=== PATIENT | female | born 1975 | race Two or more races ===

== ENCOUNTER → 2024-07-30 | Outpatient (CLI) | payer MEDICAID, SELFPAY ==
--- NOTE | 2024-07-30 16:00 | XR_ITS ---
Examination: Breast ultrasound, unilateral, right complete Date and time of exam: July 30, 2024 1615 hours INDICATIONS: Right breast sonogram December 23, 2023 9:00 oval mass 5 x 6 mm Technique: Real-time siegel scale ultrasonographic imaging performed right breast including all 4 quadrants as well as nipple retroareolar and axillary region. Findings: 9:00 cyst, 3 x 2 x 2 mm 2.4 cm benign axillary lymph node IMPRESSION: BI-RADS Category 2: Benign findings
== END | disposition home or self-care (01) ==
LOC: CDIM 15:54
PROVIDERS: Referring Provider Physician Assistant; Visit Provider Physician Assistant
DX: N60.01 Solitary cyst of right breast (principal)
CPT/HCPCS: 76641

== ENCOUNTER 2024-10-21 20:31 | Emergency (ER) | payer MEDICAID, SELFPAY ==
[2024-10-21 20:40] VITALS: BP 150/84; PULSE 112; RESP 18; TEMP 36.7; O2SAT 98
[2024-10-21 21:53] VITALS: BMI 35.9
--- NOTE | 2024-10-21 21:57 | EKG_ITS ---
[facility] Test Date: 2024-10-21 Pat Name: JOSE VELIZ Department: Room: - Gender: Female Vessel Operator: : 1975 Requested By: Venancio Best Order Number: [id number] Reading MD: Venancio Best Measurements Intervals [place] Rate: 96 P: 46 OR: 141 QRS: 17 QRSD: 87 T: 13 QT: 342 QTc: 434 Interpretive Statements SINUS RHYTHM MINIMAL VOLTAGE CRITERIA FOR LVH, CONSIDER NORMAL VARIANT [MEETS CRITERIA IN ONE OF: R(aVL), S(V1), R(V5), R(V5/V6)+S(V1)] Compared to ECG 08/14/2023 12:04:38 No significant changes /store/S0/[id number]/[id number].pdf
--- NOTE | 2024-10-21 22:21 | EDRME_ITS ---
Rapid Medical Screening Exam [facility] Arrival date/time: 10/21/24 20:31 49F with history of hysterectomy presents to ED with 2 week of worsening bilateral lower leg swelling/pain (L>R), as well as some SOB. Possible cough. Chief Complaint: Extremity Injury, Lower Vital signs: Vital Signs Temperature 98.1 F 10/21/24 20:40 Pulse Rate 112 H 10/21/24 20:40 Respiratory Rate 18 10/21/24 20:40 Blood Pressure 150/84 H 10/21/24 20:40 Pulse Oximetry (%) 98 10/21/24 20:40 Oxygen Delivery Method Room Air 10/21/24 20:40
--- NOTE | 2024-10-21 22:21 | XR_ITS ---
Examination: Venous duplex lower extremity sonogram, bilateral. Date and time of exam: October 21, 2024 at 1118 hrs. Indications: Bilateral ankle swelling and pain beginning 2 weeks ago Technique: Multiple sonographic images of the deep venous system have been obtained. B-mode/2-D grayscale imaging of vascular structures and Doppler spectral analysis (waveforms) and color performed Both legs are examined. Findings: Deep venous systems do not demonstrate abnormal echogenicity. All visualized deep veins exhibit compressibility. All visualized deep veins exhibit augmentation. Impression: Negative for deep vein thrombosis
--- NOTE | 2024-10-21 22:21 | XR_ITS ---
Examination: PA chest single view Technique: Upright PA chest single view Exam date and time: October 21, 2024 1045 hrs. Comparison summary T2 thousand 16 Indications: Onset shortness of breath today. Findings: Normal heart size No pneumonia or pulmonary edema The osseous structures are intact Impression: No active disease
[2024-10-21 22:46] LABS: Basophils % (Auto) 0 % (0-2.5); Eosinophils # (Auto) 0.1 Thou/mm3 (0.0-0.5); Eosinophils % (Auto) 2 % (0-10); Hematocrit 30.3 % (36.0-46.0); Hemoglobin 10.1 g/dL (12.0-16.0); Immature Granulocytes % (Auto) 0 % (0-0); Lymphocytes # (Auto) 1.9 Thou/mm3 (1.0-4.8); Lymphocytes % (Auto) 50 % (10-50); Mean Corpuscular HGB Conc 33.3 g/dl (31.0-37.0); Mean Corpuscular Hemoglobin 29.4 pg (25.0-35.0); Mean Corpuscular Volume 88 fL (80-100); Monocytes # (Auto) 0.6 Thou/mm3 (0.0-0.8); Monocytes % (Auto) 16 % (0-12); Neutrophils # (Auto) 1.2 Thou/mm3 (1.8-7.7); Neutrophils % (Auto) 32 % (37-80); Nucleated Red Blood Cell % 0 /100 WBC (0); Platelet Count 184 Thou/mm3 (140-440); RDW Standard Deviation 39.6 fL (36.4-46.3); Red Blood Count 3.43 Miln/mm3 (4.00-5.20); White Blood Count 3.8 Thou/mm3 (3.6-11.0)
[2024-10-21 23:29] LABS: B-Type Natriuretic Peptide 78 pg/mL (0-100)
[2024-10-21 23:31] LABS: Alanine Aminotransferase 62 U/L (10-49); Albumin, Serum 3.9 gm/dL (3.5-5.0); Albumin/Globulin Ratio 1.6 (1.2-2.2); Alkaline Phosphatase 59 U/L (46-116); Anion Gap 8 (7-16); Aspartate Amino Transferase 30 U/L (0-34); BUN/Creatinine Ratio 38 Ratio (12-20); Bilirubin,Total 0.7 mg/dL (0.3-1.2); Blood Urea Nitrogen 19 mg/dL (9-23); Calcium (Corrected) 10.1 mg/dL (8.5-10.1); Carbon Dioxide 24.6 mMol/L (20.0-31.0); Chloride 110 mMol/L (98-107); Creatinine (Component) 0.5 mg/dL (0.6-1.3); Globulin 2.5 gm/dL (2.3-3.5); Glucose 94 mg/dL (74-106); Osmolality,Calculated 287 (275-295); Sodium 143 mMol/L (136-145); Total Protein 6.4 gm/dL (5.7-8.2); Troponin I < 0.002 ng/mL (0.0-0.045); eGFR > 60 See Note
[2024-10-21 23:33] LABS: Collection Type, Urine Clean Catch
[2024-10-21 23:40] LABS: Bilirubin,Urine Negative (Negative); Blood,Urine Negative (Negative); Clarity,Urine Turbid (Clear/Hazy); Color,Urine Yellow (Lt Yel-Yel); Glucose, Urine Negative (Negative); Hyaline Casts,Urine < 1 /hpf (0-1); Ketones,Urine Negative (Negative); Leukocyte Esterase,Urine Positive (Negative); Nitrite,Urine Positive (Negative); PH,Urine 5.5 (5.0-7.0); Protein,Urine Trace (Neg - Trace); RBC,Urine 5 /hpf (0-3); Specific Gravity,Urine 1.028 (1.001-1.035); Squamous Epithelial Cell,Urine 3 /hpf (0-5); WBC,Urine 14 /hpf (0-5)
== END 2024-10-22 03:11 | disposition left against medical advice (07) ==
LOC: SERX 22:28
PROVIDERS: Physician Assistant; Emergency Provider Emergency Medicine; PCP Physician Assistant
DX: M79.89 Other specified soft tissue disorders (principal); Z53.29 Procedure and treatment not carried out because of patient's decision for other reasons; R06.02 Shortness of breath
CPT/HCPCS: 36415; 71045; 80053; 81001; 83880; 84484; 85025; 93005; 93970; 99284

== ENCOUNTER → 2024-11-10 | Outpatient (CLI) | payer MEDICAID, SELFPAY ==
--- NOTE | 2024-11-10 14:25 | XR_ITS ---
Examination: Thyroid sonography complete TECHNIQUE: Grayscale sonographic images thyroid lobes, color flow analysis Exam date and time: November 10, 2024 1453 hours INDICATIONS: Abnormal thyroid laboratory values on examination November 08, 2024 FINDINGS: Right thyroid 4.4 x 1.7 x 1.7 cm Left thyroid 3.8 x 1.6 x 1.4 cm No solid nodules Thyroid lobes are hypervascular lobar pneumonia IMPRESSION: Hypervascular thyroid lobes, consider thyroiditis Consider correlation with nuclear medicine thyroid scan and uptake post oral administration of I-123
== END | disposition home or self-care (01) ==
DX: E07.89 Other specified disorders of thyroid (principal)
CPT/HCPCS: 76536

== ENCOUNTER 2024-11-24 11:45 | Outpatient (RCR) | payer MEDICAID, SELFPAY ==
--- NOTE | 2024-11-23 08:30 | XR_ITS ---
Examination: Nuclear medicine thyroid uptake and scan Exam date and time: November 23, 2024 0717 hours INDICATIONS: Low thyroid levels on laboratory examination this month, history hypervascular thyroid lobes on ultrasound thyroid November 10, 2024, cardiac palpitations difficulty swallowing throat pain months TECHNIQUE AND FINDINGS: Oral administration 274 uCi I-123 6 hour 24-hour thyroid uptake values as well as anterior oblique thyroid scans 6 hour uptake 50.7% normal range 6-24% 24 hour uptake 45.2% normal range 10-36% No thyroid nodules on the thyroid scans IMPRESSION: Elevated thyroid uptake values This patient is amenable to oral I-131 radiopharmaceutical therapy in the radiology department as clinically warranted
== END 2024-11-29 23:59 | disposition home or self-care (01) ==
LOC: SNUC 11:45
DX: R94.6 Abnormal results of thyroid function studies (principal)
CPT/HCPCS: 78013; A9516

== ENCOUNTER → 2024-11-25 | Outpatient (CLI) | payer MEDICAID, SELFPAY ==
--- NOTE | 2024-11-25 15:00 | XR_ITS ---
Examination: Abdomen sonogram, complete Date and time of exam: November 25, 2024 1448 hours INDICATIONS: Left lower abdominal pain beginning 2 weeks ago. Technique: Multiple real-time grayscale transabdominal sonographic images of the abdomen have been obtained. Findings: Normal gallbladder. Normal common bile duct 0.4 cm Pancreatic head 1.9 cm Aorta not enlarged. Liver 11.3 cm no focal liver lesions Normal hepatopedal portal venous Patent IVC Right kidney 10.9 cm renal cortex 1.2 cm 16mm renal cyst Left kidney 11.2 cm renal cortex 1.8 cm No hydronephrosis Mild bilateral renal parenchyma scar formation Spleen 10.0 cm IMPRESSION: Normal gallbladder Mild bilateral renal parenchymal scar formation No hydronephrosis
== END | disposition home or self-care (01) ==
LOC: CDIM 14:18
DX: N28.89 Other specified disorders of kidney and ureter (principal)
CPT/HCPCS: 76700

== ENCOUNTER → 2024-12-30 | Outpatient (CLI) | payer MEDICAID, SELFPAY ==
--- NOTE | 2024-12-30 10:06 | XR_ITS ---
Examination: CT abdomen and pelvis without contrast. Coronal 3-D reconstructions. Sagittal 2-D reconstructions. Date and time of exam:December 30, 2024 1011 hours COMPARISON: June 01, 2022 INDICATIONS: Generalized abdominal pain beginning 3 weeks ago CTDI: vol (mGy): 7.66 DLP: (mGycm): 392 Technique: Axial images of the abdomen have been obtained, 3 mm slice thickness Intravenous contrast material has not been administered. Low dose protocols were performed. One or more of the following dose reduction techniques were used; automated exposure control, adjustment of the mA and/or KV according to patient size, use of iterative reconstruction technique. Findings: No focal liver or splenic lesions Suspicious for gallstones No pancreatic or adrenal mass Subtle 1 mm bilateral renal calculi, no hydronephrosis or ureteral calculi Appendix is fluid-filled and thickened up to 8 mm with minimal periappendiceal inflammatory change No bowel obstruction No bladder mass IMPRESSION: Tiny bilateral nonobstructing renal calculi Recommend repeating this study with intravenous contrast to exclude early acute appendicitis
== END | disposition home or self-care (01) ==
LOC: CCTX 09:46
DX: N20.0 Calculus of kidney (principal); M62.81 Muscle weakness (generalized); R10.9 Unspecified abdominal pain; R11.0 Nausea
CPT/HCPCS: 74176

== ENCOUNTER 2025-02-26 21:35 | Observation (INO) | payer MEDICAID, SELFPAY ==
[2025-02-26 21:37] VITALS: BMI 28.6
[2025-02-26 21:48] VITALS: BP 145/86; PULSE 100; RESP 20; TEMP 37.4; O2SAT 98
--- NOTE | 2025-02-26 21:56 | PD.EDADULT ---
ED General RME/HPI General Chief complaint: Abdominal Pain Stated complaint: NVD ABD PAIN Time Seen by Provider: 02/26/25 21:41 Arrival date/time: 02/26/25 21:35 Related Data Home Medications ?Medication ?Instructions ?Recorded ?Confirmed ibuprofen 800 mg tablet 800 mg PO [id number] PRN Pain 08/14/23 08/14/23 Allergies Allergy/AdvReac Type Severity Reaction Status Date / Time carisoprodol Allergy Unknown HIVES. Verified 02/26/25 21:42 Review of Systems Review of Systems Systems Reviewed: All systems reviewed, normal except as documented ED Exam Narrative Physical exam: Physical Exam GENERAL: NAD, AAOx3 HEENT: Moist mucosa. Eyes open, symmetrical, & clear CARDIO: Heart RRR, no obvious murmurs PULM: No noted coughing/dyspnea CTA B/L, no R/W/R GI: Abdomen soft, nondistended, RLQ pain on palpation. BS-appreciated SKIN/MSK/EXT: No wounds/rashes/edema/amputations, no pain on palpation. Pedal pulses present B/L NEURO: AAOx3, no focal neuro deficits, able to move all 4 extremities Course Course Course Narrative: See MDM Quality Measures none Orders Category Date Time Status CT Screening NOW Care 02/26/25 22:25 Active Consult to General Surgery Stat Cons 02/27/25 04:[address] abdomen pelvis wo con Stat Exams 02/27/25 01:36 Taken US gall bladder Stat Exams 02/27/25 01:18 Taken Amylase Stat Lab 02/27/25 00:00 Completed CBC [CBC] Stat Lab 02/26/25 22:28 Completed CMP [Comprehensive Metabolic Panel] Stat Lab 02/26/25 22:28 Completed HCG Qualitative,Urine Stat Lab 02/26/25 23:15 Completed Lactic Acid [Lactate (Lactic Acid)] Stat Lab 02/26/25 22:28 Completed Lipase Stat Lab 02/27/25 00:00 Completed Magnesium Stat Lab 02/27/25 00:00 Completed UA [Urinalysis] Stat Lab 02/26/25 23:15 Completed ACETAMINOPHEN w/COD 300-30 [Tylenol w/Cod #3] Med 02/27/25 01:18 Discontinued 2 tab PO X1 ONE Ondansetron Inj [Zofran Inj] Med 02/26/25 21:59 Discontinued 4 mg IVP Q6HR PRN Ondansetron Odt [Zofran Odt] Med 02/27/25 01:18 Discontinued 4 mg PO X1 ONE Piper/Tazo 3.375 gm Premix [Zosyn] Med 02/27/25 03:22 Discontinued 3.375 gm in 50 ml IV X1 Ringers Lactated 1000 ml [Lactated Ringers] 1,000 ml Med 02/27/25 03:22 Active IV 125 mls/hr Ringers Lactated 1000 ml [Lactated Ringers] 1,000 ml Med 02/26/25 21:59 Discontinued IV 999 mls/hr Vital Signs Vital signs: Vital Signs Temperature 99.3 F 02/26/25 21:48 Pulse Rate 100 02/26/25 21:48 Respiratory Rate 20 02/26/25 21:48 Blood Pressure 145/86 H 02/26/25 21:48 Pulse Oximetry (%) 98 02/26/25 21:48 Oxygen Delivery Method Room Air 02/26/25 21:48 Discharge Plan Plan Patient Disposition: Admit Acute Care w/in Hospital Prescriptions/Referrals Prescriptions/Med Rec: No Action ibuprofen 800 mg tablet 800 mg PO [id number] PRN (Reason: Pain) Patient Comments: 1 TABLETA GERMAIN VECES AL D A CON ALIMENTO CUANDO SEA NECESARIO PARA EL DOLOR Referrals: No Primary/Family,Physician [Primary Care Provider] - In 1 week Problem List Clinical Impression: Acute appendicitis Patient/Caregiver Discharge Instructions Print Language: Azeri Stand Alone Forms: Mary Beth Award Info., Patient Portal Info Letter MDM Narrative MDM hospital course: 50 y/o F who presented to the ED due to abdominal pain. She described the pain more pronouned the RLQ but now has spread across her abdomen. She endorses chills as well which is new since a week ago. She also endorses 5x episodes of nausea and vomiting, however non-bloody and 5x episodes of nonbloody diarrhea. Patient states she had similar pain about a week ago went to [facility] and was told that she had fluid around her appendix and was told to come to the ED if symptoms happen again as she could be having appendicitis. 0330 CT reviewed and found to have appendicitis, spoke to Dr. Burgos who will admit the patient to OR for possible appendectomy in the a.m. recommended IV fluids and Zosyn Dr. Burgos will admit the patient to his service Clinical Information Provided by patient Medical Records Reviewed [facility] Chronic Illness/Social Conditions which may negatively complicate care or outcome(s)-explain: None or not applicable Lab Interpretation Labs: interpreted by me Lab(s) interpretation(s): normocytic anemia, CMP unremarkable, lipase slightly elevated, urine shows positive UTI, Imaging Radiology reports / interpretation(s): See radiology report Medication Administration(s) Medication Administration History Lactated Ringer's (Lactated Ringers) 1,000 mls @ 125 mls/hr IV .Q8H STEWART Stop: 03/29/25 03:21 Last Admin: 02/27/25 04:21 Dose: 125 mls/hr Documented By: BD Discontinued Medications Acetaminophen/Codeine Phosphate (Acetaminophen W/Cod 300-30 Tablet) 2 tab PO X1 ONE Stop: 02/27/25 01:19 Last Admin: 02/27/25 01:51 Dose: 2 tab Documented By: CHARLIE Lactated Ringer's (Lactated Ringers) 1,000 mls @ 999 mls/hr IV .Q1H1M ONE Stop: 02/26/25 22:59 Last Admin: 02/27/25 01:22 Dose: Not Given Documented By: CRISTIN Non-Admin Reason: Cancelled by Provider Piperacillin/Tazobactam/Dextrose (Zosyn) 3.375 gm in 50 mls @ 100 mls/hr IV X1 ONE Stop: 02/27/25 03:51 Last Admin: 02/27/25 04:21 Dose: 100 mls/hr Documented By: ARELY Ondansetron HCl (Ondansetron Inj 2 Mg/Ml Inj 2 Ml) 4 mg IVP Q6HR PRN; Protocol PRN Reason: NAUSEA OR VOMITING Stop: 03/28/25 21:58 Ondansetron HCl (Ondansetron Odt 4 Mg Tabrap) 4 mg PO X1 ONE; Protocol Stop: 02/27/25 01:19 Last Admin: 02/27/25 01:50 Dose: 4 mg Documented By: CHARLIE Diagnosis Differential diagnosis: Acute appendicitis, colitis, diverticulitis Most likely dx, and/or detailed dx discussion: Acute appendicitis Dispositon Disposition: Admit
[2025-02-26 22:47] LABS: Basophils # (Auto) 0.0 Thou/mm3 (0.0-0.2); Basophils % (Auto) 0 % (0-2.5); Eosinophils # (Auto) 0.0 Thou/mm3 (0.0-0.5); Eosinophils % (Auto) 0 % (0-10); Hematocrit 35.4 % (36.0-46.0); Hemoglobin 11.7 g/dL (12.0-16.0); Immature Granulocytes Auto 0.03 Thou/mm3 (0.00-0.00); Lymphocytes # (Auto) 0.9 Thou/mm3 (1.0-4.8); Lymphocytes % (Auto) 9 % (10-50); Mean Corpuscular HGB Conc 33.1 g/dl (31.0-37.0); Mean Corpuscular Hemoglobin 28.9 pg (25.0-35.0); Mean Corpuscular Volume 87 fL (80-100); Monocytes # (Auto) 0.6 Thou/mm3 (0.0-0.8); Monocytes % (Auto) 6 % (0-12); Neutrophils # (Auto) 8.4 Thou/mm3 (1.8-7.7); Neutrophils % (Auto) 84 % (37-80); Nucleated Red Blood Cell # 0.00 Thou/mm3 (0.00-0.00); Nucleated Red Blood Cell % 0 /100 WBC (0); Platelet Count 206 Thou/mm3 (140-440); RDW Standard Deviation 46.5 fL (36.4-46.3); Red Blood Count 4.05 Miln/mm3 (4.00-5.20); White Blood Count 9.9 Thou/mm3 (3.6-11.0)
[2025-02-26 22:48] LABS: Lactate (Lactic Acid) 1.5 mMol/L (0.4-2.0)
[2025-02-26 23:12] LABS: Alanine Aminotransferase 28 U/L (10-49); Albumin, Serum 4.5 gm/dL (3.5-5.0); Albumin/Globulin Ratio 1.5 (1.2-2.2); Alkaline Phosphatase 154 U/L (46-116); Anion Gap 8 (7-16); Aspartate Amino Transferase 20 U/L (0-34); BUN/Creatinine Ratio 20 Ratio (12-20); Bilirubin,Total 0.5 mg/dL (0.3-1.2); Blood Urea Nitrogen 12 mg/dL (9-23); Calcium 10.1 mg/dL (8.3-10.6); Calcium (Corrected) 10.1 mg/dL (8.5-10.1); Carbon Dioxide 23.7 mMol/L (20.0-31.0); Chloride 110 mMol/L (98-107); Creatinine (Component) 0.6 mg/dL (0.6-1.3); Estimated Creatinine Clearance 89.5 mL/min (>60); Globulin 3.1 gm/dL (2.3-3.5); Glucose 123 mg/dL (74-106); Osmolality,Calculated 283 (275-295); Potassium 4.9 mMol/L (3.4-5.1); Sodium 142 mMol/L (136-145); Total Protein 7.6 gm/dL (5.7-8.2); eGFR > 60 See Note
[2025-02-26 23:30] LABS: Collection Type, Urine Clean Catch
[2025-02-26 23:43] LABS: HCG Qualitative,Urine Negative
[2025-02-26 23:50] LABS: Bacteria,Urine 1+; Bilirubin,Urine Negative (Negative); Blood,Urine Negative (Negative); Calcium Oxalate Crystals,Urine 1+; Clarity,Urine Clear (Clear/Hazy); Color,Urine Lt-Yellow (Lt Yel-Yel); Glucose, Urine Negative (Negative); Ketones,Urine Negative (Negative); Leukocyte Esterase,Urine Positive (Negative); Nitrite,Urine Negative (Negative); PH,Urine 7.0 (5.0-7.0); Protein,Urine Negative (Neg - Trace); RBC,Urine 3 /hpf (0-3); Specific Gravity,Urine 1.020 (1.001-1.035); Squamous Epithelial Cell,Urine 1 /hpf (0-5); Urobilinogen,Urine Negative mg/dL (0.0-1.0); WBC,Urine 15 /hpf (0-5)
[2025-02-27] VITALS (23 sets, daily range): BP systolic 110–133; BP diastolic 63–77; PULSE 92–108; RESP 15–22; TEMP 36.3–37.4; O2SAT 94–100; BMI 28.6
--- NOTE | 2025-02-27 01:18 | XR_ITS ---
Examination: Abdomen sonogram, Limited Date and time of exam: February 27, 2025, 0212 hours INDICATIONS: Intermittent abdominal pain beginning one week ago Technique: Real-time siegel scale transabdominal sonographic images of the upper abdomen obtained. Findings: Normal gallbladder. Normal common bile duct 0.3 cm. Pancreatic head 2.5 cm Liver 11.7 cm irregular contour fatty infiltration Normal hepatopedal portal venous flow Patent IVC IMPRESSION: Normal gallbladder Normal common bile duct
--- NOTE | 2025-02-27 01:36 | XR_ITS ---
Examination: CT abdomen and pelvis without contrast. Coronal 3-D reconstructions. Sagittal 2-D reconstructions. Date and time of exam:February 27, 2025 0136 hours COMPARISON: December 30, 2024 INDICATIONS: Onset generalized abdominal pain today CTDI: vol (mGy): 6 DLP: (mGycm): 352 Technique: Axial images of the abdomen have been obtained, 3 mm slice thickness Intravenous contrast material has not been administered. Low dose protocols were performed. One or more of the following dose reduction techniques were used; automated exposure control, adjustment of the mA and/or KV according to patient size, use of iterative reconstruction technique. Findings: No visualized liver or splenic lesion No gallstones No pancreatic or adrenal mass No renal or ureteral calculi, no hydronephrosis Fluid-filled enlarged inflamed appendix medial to the cecum, axial images 139 through 149 No pelvic abscess Urinary bladder is intact Vaginal cuff is mildly prominent IMPRESSION: Acute appendicitis, no pelvic abscess Recommend elective pelvic sonography to assess the vaginal cuff
[2025-02-27] MEDS: ONDANSETRON ODT 4 MG TABRAP PO (01:50)
[2025-02-27] MEDS: ACETAMINOPHEN w/COD 300-30 TABLET 2 TAB PO (01:51)
[2025-02-27 02:26] LABS: Amylase 90 U/L (30-118); Lipase 62 U/L (12-53); Magnesium 1.7 mg/dL (1.6-2.6)
--- NOTE | 2025-02-27 03:24 | PRELIM_ITS ---
CT scan of the abdomen and pelvis without intravenous contrast (axial sections with sagittal and coronal reformats). February 27, 2025 at 0136 hours Clinical History: Abdominal pain. Comparison: Compared with the prior CT study dated December 30, 2024. Findings: The lung bases are clear. The liver, gallbladder, pancreas, spleen, kidneys and adrenals are unremarkable on this noncontrast study. No evidence of bowel obstruction. Thickening of the appendix measuring up to 1.3 cm associated with peripheral fat stranding, no perforation, no collections. There is no mesenteric or retroperitoneal adenopathy. The urinary bladder is unremarkable. There is no free fluid or free air. The osseous structures are unremarkable. Fullness at the vaginal cuff. Impression: 1. Acute appendicitis. Surgical consult is recommended. 2. Fullness at the vaginal cuff. Correlation with MRI for further evaluation is recommended. Differential diagnosis includes cancer. Discussion Details: Results verbally communicated to : Dr. Nesbitt at 03:15 AM 02/27/2025 Report Electronically Signed By: Ravinder Morales 02/27/2025 3:23:48 AM [EST]
--- NOTE | 2025-02-27 03:31 | PRELIM_ITS ---
Right upper quadrant abdominal ultrasound with Doppler and wave Doppler spectral analysis. February 27, 2025 0212 hours Clinical history: RUQ tenderness. Technique: Grayscale and color flow images of the right upper quadrant are provided. Hepatic and portal veins were also imaged with color flow images. Comparison: CT of December 30, 2024. Findings: Mild irregular liver margins. Mildly heterogenous liver parenchyma. No intrahepatic biliary ductal dilatation. No gallbladder calculus, wall thickening or pericholecystic fluid is demonstrated. The common bile duct is normal in caliber at 2.6 mm. The pancreas is unremarkable to the extent visualized. The imaged portions of the right kidney are within normal limits. The portal vein is patent with hepatopetal flow normal wave Doppler spectral analysis. The inferior vena cava is patent with normal with Doppler spectral analysis. Ribeiro sign is negative. Impression: No evidence of cholecystitis. Probable cirrhosis. Report Electronically Signed By: Ravinder Morales 02/27/2025 3:30:45 AM [EST]
[2025-02-27] MEDS: RINGERS LACTATED 1000 ML 1,000 ML 125 ML IV (04:21)
[2025-02-27] MEDS: PIPER/TAZO 3.375 GM PREMIX 3.375 GM/50 ML BAG IV ×2 (04:21→12:27)
--- NOTE | 2025-02-27 07:38 | ESHP_ITS ---
HPI Date of Admission 02/27/2025 Chief Complaint Chief Complaint: Patient is admitted with the complaints of abdominal pain and acute appendicitis HPI History of present illness revealed that the patient developed pain in the upper abdomen across both sides and it is now moved to the right side. Patient gives history of starting this pain around 11:00 yesterday morning. She has not eaten afterwards. She also had 5 episodes of vomiting and 4 of episodes of loose bowel movements which she described as diarrhea. She had a similar pain about a week ago but it abated on its own after a day. Patient past medical history is negative for any major medical illness like diabetes or hypertension. Past surgery consisted of section to the midline incision and carpal tunnel release. 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 She does not smoke or drink Past Medical History Past Medical History NEUROLOGIC: Negative Neurological Disorders or Seizures CARDIAC: Negative Cardiac Disorders or Congestive Heart Failure RESPIRATORY: Negative Chronic Obstructive Pulmonary Disease (COPD) or Asthma GASTROINTESTINAL: Positive Gastrointestinal Disorders and Obesity GENITOURINARY: Positive Genitourinary Disorders and Kidney Stones; Negative Renal Disease REPRODUCTIVE: Positive Previous Pregnancies MUSCULOSKELETAL: Positive Carpal Tunnel Syndrome (Left); Negative Musculoskeletal Disorders ENDOCRINE: Positive Hyperthyroidism; Negative Endocrine Disorders, Diabetes Mellitus Type 1 or Diabetes Mellitus Type 2 HEMATOLOGIC: Positive Anemia; Negative Blood Disorders or Sickle Cell Disease PSYCHO/SOCIAL: Positive Depression (no meds) and Anxiety OTHER HISTORY: Negative Hospitalization, Autoimmune Disease, Shingles, Blood Tr ansfusions, Anesthesia Reactions or Cancer Family History FAMILY HISTORY: Positive Family Surgery; Negative Family Psychiatric Problems, Family Respiratory Disorders, Family Cardiac Disorders, Family Gastrointestinal Problems, Family Cancer or Family Anesthesia Reaction Surgical History SURGICAL: Positive Hysterectomy and Section (x3) Social History SMOKING STATUS: Never smoker Meds Home Medications and Allergies Home Medications ?Medication ?Instructions ?Recorded ?Confirmed ?Type ibuprofen 800 mg tablet 800 mg PO [id number] PRN Pain 1 10/15/22 08/14/23 History Allergies Allergy/AdvReac Type Severity Reaction Status Date / Time carisoprodol Allergy Unknown HIVES. Verified 02/26/25 21:42 Exam Vital Signs Temp Pulse Resp BP Pulse Ox O2 Del Method 98.4 F 99 20 133/66 H 99 Room Air 02/27/25 06:00 02/27/25 06:00 02/27/25 06:00 02/27/25 06:00 02/27/25 06:00 02/27/25 06:00 Narrative Exam Physical examination revealed middle-aged female who is 4 foot 11 inches tall weighing 142 pounds. Her vital signs are normal other than ta chycardia with a heart rate of around 100 Constitutional Constitutional: mild distress Routine Respiratory Exam Comments: Good breath sounds on both side Routine Cardiovascular Exam Comments: Tachycardia Routine Abdominal Exam Comments: Abdominal exam shows midline surgical scar from the previous section. Palpation of the abdomen showed pain over the right lower quadrant. It seems to be localized and there is some rebound tenderness. Bowel sounds are hypoactive Routine Rectal Exam Comments: Deferred Routine Exam Comments: GERD Routine Extremities Exam Comments: Within normal limits Results Results: Laboratory Laboratory Narrative: Patient's laboratory work is within normal limits Results: Imaging Imaging narrative: CT scan of the abdomen showed acute appendicitis Assessment & Plan Additional Assessment Additional comments: Impression: Acute appendicitis Plan Plan: I had a discussion with the patient about treatment options. I advised her to have a gel antibiotic therapy which could cure this appendicitis but unfortunately may require in the future. Other option is to do appendectomy which is invasive and surgical procedure. I told her about the laparoscopic appendectomy and the possible need for open appendectomy if this fails. Patient may also have injury to the bowels especially with previous surgery causing adhesions. If the laparoscopic approach fails patient will undergo open appendectomy. This was explained to her in detail and she is agreeable to proceed with laparoscopic appendectomy. Quality Measures Quality Measures none
--- NOTE | 2025-02-27 09:38 | PD.SUROPNT ---
Date of Procedure 02/27/25 Pre Op Diagnosis Acute appendicitis Post Op Diagnosis Same Procedure Laparoscopic appendectomy Findings Patient was found to have an inflamed appendix and its entire length located medial to the cecum Procedure Description After the patient was placed in supine position and anesthesia was administered with endotracheal intubation. Abdomen was prepped with ChloraPrep solution and draped in a sterile manner. A timeout was performed and a small incision was made just above the umbilicus. Fascia was cleaned and Veress needle was inserted to obtain a pneumoperitoneum up to 15 mmHg. Then I introduced a 12 mm trocar at the umbilicus with a 10 mm camera. Patient was kept in Trendelenburg position with the left lateral tilt. Intra-abdominal organs were visualized and this showed omentum covering the right lower quadrant. A 5 mm trocar was inserted in the right lower quadrant under direct vision and using a laparoscopic Eleni I move the omentum and identified the appendix. Appendix was inflamed in its entire length and was located medial to the cecum. Another 5 mm trocar was inserted in the left lower quadrant under direct vision and using Harmonic nova I dissected the mesoappendix cauterizing the vessels. When the base of the appendix was reached this was stapled using an Endo cutter 35 power willi. Then the appendix was retrieved through the Endopouch through the umbilical port. Then after irrigating and cleaning the pelvis and the right lower quadrant all the trocars were pulled out and the pneumoperitoneum was let out. Fascia was closed with interrupted 0 Ethibond and then I injected half percent Marcaine with epinephrine for analgesia. Skin was then closed with interrupted 4-0 Monocryl stitches and a Tegaderm dressing was applied. Patient tolerated the procedure well and returned to recovery room in stable condition. Anesthesia GETA Pathology / specimen Other (Inflamed appendix) IVF Infused 500 Estimated Blood Loss 20 Surgeon Amy Bustillo MD Surgical Staff Operation Date: 02/27/25 08:45 Case Staff Anesthesiologist: Adolfo Senior RNconsulting software engineer: Caty Trivedi
--- NOTE | 2025-02-27 09:48 | SUR.PHASEI ---
pt received to [facility]. vss. alert and oriented. denies pain and nausea. report from nurse nohelia and dr parker. dressings to abdomen [id number].
[2025-02-27] MEDS: SODIUM CHLORIDE 0.9% 1000 ML 1,000 ML 100 ML IV ×2 (11:19→18:03)
--- NOTE | 2025-02-27 13:53 | SUR.PHASEI ---
report called to tavon on ms. vss. breathing even and unlabored. dressings remain cdi x3. denies pain and nausea.
[2025-02-27] MEDS: MORPHINE SULF INJ 10 MG/ML VIAL 4 MG IVP ×2 (18:02→23:06)
[2025-02-28] VITALS: BP 105/55; PULSE 107; RESP 19; TEMP 36.4; O2SAT 97
[2025-02-28] MEDS: SODIUM CHLORIDE 0.9% 1000 ML 1,000 ML 100 ML IV (03:28)
[2025-02-28 04:00] VITALS: BP 117/64; PULSE 104; RESP 18; TEMP 36.7; O2SAT 97
[2025-02-28 06:22] LABS: Basophils # (Auto) 0.0 Thou/mm3 (0.0-0.2); Basophils % (Auto) 0 % (0-2.5); Eosinophils # (Auto) 0.0 Thou/mm3 (0.0-0.5); Eosinophils % (Auto) 0 % (0-10); Hematocrit 29.6 % (36.0-46.0); Hemoglobin 9.8 g/dL (12.0-16.0); Immature Granulocytes Auto 0.01 Thou/mm3 (0.00-0.00); Lymphocytes # (Auto) 0.8 Thou/mm3 (1.0-4.8); Lymphocytes % (Auto) 14 % (10-50); Mean Corpuscular HGB Conc 33.1 g/dl (31.0-37.0); Mean Corpuscular Hemoglobin 29.5 pg (25.0-35.0); Mean Corpuscular Volume 89 fL (80-100); Monocytes # (Auto) 0.6 Thou/mm3 (0.0-0.8); Monocytes % (Auto) 10 % (0-12); Neutrophils # (Auto) 4.7 Thou/mm3 (1.8-7.7); Neutrophils % (Auto) 77 % (37-80); Nucleated Red Blood Cell # 0.00 Thou/mm3 (0.00-0.00); Nucleated Red Blood Cell % 0 /100 WBC (0); Platelet Count 156 Thou/mm3 (140-440); RDW Standard Deviation 46.7 fL (36.4-46.3); Red Blood Count 3.32 Miln/mm3 (4.00-5.20); White Blood Count 6.1 Thou/mm3 (3.6-11.0)
[2025-02-28 08:00] VITALS: BP 112/60; PULSE 98; RESP 19; TEMP 36.4; O2SAT 97
[2025-02-28] MEDS: MORPHINE SULF INJ 10 MG/ML VIAL 4 MG IVP (08:46)
[2025-02-28 12:00] VITALS: BP 116/68; PULSE 103; RESP 18; TEMP 36.3; O2SAT 97
--- NOTE | 2025-02-28 14:04 | PD.SURPROG ---
Documentation for date of: 02/28/25 Subjective Subjective Brief History: History of present illness revealed that the patient developed pain in the upper abdomen across both sides and it is now moved to the right side. Patient gives history of starting this pain around 11:00 yesterday morning. She has not eaten afterwards. She also had 5 episodes of vomiting and 4 of episodes of loose bowel movements which she described as diarrhea. She had a similar pain about a week ago but it abated on its own after a day. Patient past medical history is negative for any major medical illness like diabetes or hypertension. Past surgery consisted of section to the midline incision and carpal tunnel release. 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 She does not smoke or drink Narrative: The patient is doing well after surgery and does not have any complaints. Exam Vital Signs Temp Pulse Resp BP Pulse Ox O2 Del Method 97.3 F 103 H 18 116/68 97 Room Air 02/28/25 12:00 02/28/25 12:00 02/28/25 12:00 02/28/25 12:00 02/28/25 12:00 02/28/25 12:00 Vital signs are normal other than mild tachycardia Routine Abdominal Exam Comments: Abdominal examination is benign Results Results: Laboratory Laboratory Narrative: WBC is down to normal Assessment & Plan Assessment Additional comments: Impression: Stable postoperative course following laparoscopic appendectomy Plan Plan: We shall discharge the patient today and see her next week in my office PROCEDURES: Procedures Laparoscopic appendectomy
== END 2025-02-28 15:04 | disposition home or self-care (01) ==
LOC: SERX 02-27 04:33 → SERHOLD 02-27 08:10 → S3SX 02-27 19:59
PROVIDERS: Emergency Medicine; Admitting Provider Surgery; Emergency Provider Student in an Organized Health Care Education/Training Program; Visit Provider Surgery
PROC: 0DTJ4ZZ Resection of Appendix, Percutaneous Endoscopic Approach (ICD-10-PCS; CPT 44970; principal; 2025-02-27 08:30)
DX: K35.30 Acute appendicitis with localized peritonitis, without perforation or gangrene (principal)
CPT/HCPCS: 44970; 36415; 74176; 76705; 80053; 81001; 81025; 82150; 83605; 83690; 83735; 85025; 96361; 96365; 96366; 96375; 96376; 99285; A4217; A4649; C1713; G0378; J0131; J1100; J2270; J2371; J2405; J2543; J2704; J3010; J3490; J7030; J7120; Q0162; A9270; J1805

== ENCOUNTER 2025-05-01 14:59 | Emergency (ER) | payer MEDICAID, SELFPAY ==
[2025-05-01 15:00] VITALS: BMI 26.2
[2025-05-01 15:56] VITALS: BP 119/68; PULSE 108; RESP 18; TEMP 36.9; O2SAT 99
--- NOTE | 2025-05-01 16:45 | XR_ITS ---
Examination: PA lateral chest 2 views Technique: Upright PA lateral chest 2 views Date and time: May 01, 2025, 171 hrs. Indications: Chest pain today. Findings: Normal heart size. Lungs are clear. The osseous structures are intact Impression: No active disease.
--- NOTE | 2025-05-01 16:45 | EKG_ITS ---
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
--- NOTE | 2025-05-01 16:46 | PD.EDRME ---
Rapid Medical Screening Exam RME Arrival date/time: 05/01/25 14:59 This is a 50 year old female with complaints of chest pain, palpitations, fever, and headache that started last night. Pt was seen at the clinic earlier today and was told to come to the emergency room because of the palpitations. Patient does have a history of thyroid problems and does take a thyroid supplement. Patient also has a history of anemia. I have greeted and performed a focused initial assessment of this patient. Initial appropriate labs ordered at this time. A comprehensive ED assessment and evaluation of the patient and analysis of all test and completion of medical decision making process will be conducted by additional ED provider. Chief Complaint: Flu Like Symptoms Time Seen by Provider: 05/01/25 15:44 Vital signs: Vital Signs Temperature 98.5 F 05/01/25 15:56 Pulse Rate 108 H 05/01/25 15:56 Respiratory Rate 18 05/01/25 15:56 Blood Pressure 119/68 05/01/25 15:56 Pulse Oximetry (%) 99 05/01/25 15:56 Oxygen Delivery Method Room Air 05/01/25 15:56
[2025-05-01] MEDS: ACETAMINOPHEN 500 MG TABLET 1000 MG PO (17:02)
[2025-05-01 17:27] LABS: Collection Type, Urine Voided
[2025-05-01 17:29] LABS: Basophils # (Auto) 0.0 Thou/mm3 (0.0-0.2); Basophils % (Auto) 0 % (0-2.5); Eosinophils # (Auto) 0.0 Thou/mm3 (0.0-0.5); Eosinophils % (Auto) 1 % (0-10); Hematocrit 32.4 % (36.0-46.0); Hemoglobin 10.6 g/dL (12.0-16.0); Immature Granulocytes Auto 0.01 Thou/mm3 (0.00-0.00); Lymphocytes # (Auto) 1.1 Thou/mm3 (1.0-4.8); Lymphocytes % (Auto) 20 % (10-50); Mean Corpuscular HGB Conc 32.7 g/dl (31.0-37.0); Mean Corpuscular Hemoglobin 28.2 pg (25.0-35.0); Mean Corpuscular Volume 86 fL (80-100); Monocytes # (Auto) 0.8 Thou/mm3 (0.0-0.8); Monocytes % (Auto) 16 % (0-12); Neutrophils # (Auto) 3.4 Thou/mm3 (1.8-7.7); Neutrophils % (Auto) 64 % (37-80); Nucleated Red Blood Cell # 0.00 Thou/mm3 (0.00-0.00); Nucleated Red Blood Cell % 0 /100 WBC (0); Platelet Count 154 Thou/mm3 (140-440); RDW Standard Deviation 41.0 fL (36.4-46.3); Red Blood Count 3.76 Miln/mm3 (4.00-5.20); White Blood Count 5.4 Thou/mm3 (3.6-11.0)
[2025-05-01 17:39] LABS: Bacteria,Urine 1+; Bilirubin,Urine Negative (Negative); Blood,Urine Negative (Negative); Clarity,Urine Turbid (Clear/Hazy); Color,Urine Yellow (Lt Yel-Yel); Culture Indicated,Urine Yes; Glucose, Urine Negative (Negative); Ketones,Urine Negative (Negative); Leukocyte Esterase,Urine Positive (Negative); Nitrite,Urine Negative (Negative); PH,Urine 6.0 (5.0-7.0); Protein,Urine Negative (Neg - Trace); RBC,Urine 4 /hpf (0-3); Specific Gravity,Urine 1.018 (1.001-1.035); Squamous Epithelial Cell,Urine 4 /hpf (0-5); Transitional Epi Cells,Urine 1 /hpf (0-5); Urobilinogen,Urine Negative mg/dL (0.0-1.0); WBC,Urine 26 /hpf (0-5)
[2025-05-01 17:52] LABS: B-Type Natriuretic Peptide 264 pg/mL (0-100)
[2025-05-01 17:53] LABS: Alanine Aminotransferase 47 U/L (10-49); Albumin, Serum 3.9 gm/dL (3.5-5.0); Albumin/Globulin Ratio 1.7 (1.2-2.2); Alkaline Phosphatase 121 U/L (46-116); Anion Gap 12 (7-16); Aspartate Amino Transferase 25 U/L (0-34); BUN/Creatinine Ratio 28 Ratio (12-20); Bilirubin,Total 0.6 mg/dL (0.3-1.2); Blood Urea Nitrogen 17 mg/dL (9-23); Calcium 9.8 mg/dL (8.3-10.6); Calcium (Corrected) 9.9 mg/dL (8.5-10.1); Carbon Dioxide 21.0 mMol/L (20.0-31.0); Chloride 106 mMol/L (98-107); Creatinine (Component) 0.6 mg/dL (0.6-1.3); Estimated Creatinine Clearance 85.7 mL/min (>60); Globulin 2.3 gm/dL (2.3-3.5); Glucose 135 mg/dL (74-106); Osmolality,Calculated 281 (275-295); Potassium 4.6 mMol/L (3.4-5.1); Sodium 139 mMol/L (136-145); Total Protein 6.2 gm/dL (5.7-8.2); Troponin I < 0.020 ng/mL (0.0-0.045); eGFR > 60 See Note
--- NOTE | 2025-05-01 19:10 | PD.EDADULT ---
ED General RME/HPI General Chief complaint: Flu Like Symptoms Stated complaint: FEVER/PALPITATIONS SINCE LAST NIGHT, SENT BY CLINI Time Seen by Provider: 05/01/25 15:44 Arrival date/time: 05/01/25 14:59 CC: Headache chest pain back pain fever HPI onset 2 days ago denies any palpitations. Has been taking Tylenol but is run out . Patient denies shortness of breath or difficulty breathing. No other family members ill with similar symptoms. RME / HPI RME / HPI narrative: 05/01/25 14:59 This is a 50 year old female with complaints of chest pain, palpitations, fever, and headache that started last night. Pt was seen at the clinic earlier today and was told to come to the emergency room because of the palpitations. Patient does have a history of thyroid problems and does take a thyroid supplement. Patient also has a history of anemia. I have greeted and performed a focused initial assessment of this patient. Initial appropriate labs ordered at this time. A comprehensive ED assessment and evaluation of the patient and analysis of all test and completion of medical decision making process will be conducted by additional ED provider. Related Data Previous Rx's ?Medication ?Instructions ?Recorded hydrocodone 5 mg-acetaminophen 325 1 tab PO Q6H #20 tabs 02/28/25 mg tablet nitrofurantoin 100 mg PO Q12H 7 days #14 caps 05/01/25 monohydrate/macrocrystals 100 mg capsule (Macrobid) Allergies Allergy/AdvReac Type Severity Reaction Status Date / Time carisoprodol Allergy Severe HIVES. Verified 05/01/25 15:03 Review of Systems Review of Systems Narrative Review of Systems: GEN: + fever, no chills, no weight loss EYES: No discharge, no visual changes, no pain HEENT: No ear pain, no congestion, no sore throat PULM: No shortness of breath, no cough, no congestion CV: + chest pain, no dyspnea on exertion, no palpitations GI: No nausea, no vomiting, no diarrhea, no pain, no constipation : No frequency, no urgency, no dysuria MUSC/SKEL: No joint pain, no back pain SKIN: No rash PSYCH: No hallucinations, no depression HEME/LYMPH: No easy bleeding or bruising tendencies NEURO: No weakness, = headache Past Medical History Past Medical History NEUROLOGIC: Negative Neurological Disorders or Seizures CARDIAC: Negative Cardiac Disorders or Congestive Heart Failure RESPIRATORY: Negative Chronic Obstructive Pulmonary Disease (COPD) or Asthma GASTROINTESTINAL: Positive Gastrointestinal Disorders and Obesity GENITOURINARY: Positive Genitourinary Disorders and Kidney Stones; Negative Renal Disease REPRODUCTIVE: Positive Previous Pregnancies MUSCULOSKELETAL: Positive Carpal Tunnel Syndrome; Negative Musculoskeletal Disorders ENDOCRINE: Positive Hyperthyroidism; Negative Endocrine Disorders, Diabetes Mellitus Type 1 or Diabetes Mellitus Type 2 HEMATOLOGIC: Positive Anemia; Negative Blood Disorders or Sickle Cell Disease PSYCHO/SOCIAL: Positive Depression and Anxiety OTHER HISTORY: Negative Hospitalization, Autoimmune Disease, Shingles, Blood Transfusions, Anesthesia Reactions or Cancer Family History FAMILY HISTORY: Positive Family Surgery; Negative Family Psychiatric Problems, Family Respiratory Disorders, Family Cardiac Disorders, Family Gastrointestinal Problems, Family Cancer or Family Anesthesia Reaction Surgical History SURGICAL: Positive Hysterectomy and Section Social History SMOKING STATUS: Never smoker ED Exam Narrative Physical exam: [General: Not in any acute distress Head normocephalic HEENT: Within acceptable limits Neck is supple nontender Chest equal chest rise nontender to palpation Respiratory: Clear to auscultation no wheezes crackles or rubs CV: Rate rhythm is regular no murmurs rubs or clicks Abdomen is soft nontender no masses positive bowel sounds all 4 quadrants Back: No CVA tenderness no spinous process tenderness from cervical spine thoracic and lumbar spine Skin: Intact no petechiae rash induration ulceration or crepitus Extremities: Moving all extremity against resistance cap refill less than 2 seconds neurosensory intact Neuro: Awake alert oriented x3 Glascow coma 15 no focal deficits] Course Quality Measures none Orders Category Date Time Status Bedside COVID-19 Antigen Test NOW Care 05/01/25 16:45 Active Bedside Influenza A&B Antigen Test NOW Care 05/01/25 16:45 Completed EKG (ED ONLY) *Do not use* NOW Care 05/01/25 16:45 Completed EKG (ED Only) Stat Exams 05/01/25 16:45 Draft XR chest 2V Stat Exams 05/01/25 16:45 Completed BNP [B-Type Natriuretic Peptide] Stat Lab 05/01/25 17:09 Completed CBC Stat Lab 05/01/25 17:09 Completed Comprehensive Metabolic Panel Stat Lab 05/01/25 17:09 Completed Troponin I Stat Lab 05/01/25 17:09 Completed Urinalysis, C/S if Indicated Stat Lab 05/01/25 17:10 Completed Urine Culture Stat Lab 05/01/25 17:10 Received Acetaminophen Tab [Tylenol ES Tab] Med 05/01/25 16:47 Discontinued 1,000 mg PO X1 ONE Vital Signs Vital signs: Vital Signs Temperature 98.5 F 05/01/25 15:56 Pulse Rate 108 H 05/01/25 15:56 Respiratory Rate 18 05/01/25 15:56 Blood Pressure 119/68 05/01/25 15:56 Pulse Oximetry (%) 99 05/01/25 15:56 Oxygen Delivery Method Room Air 05/01/25 15:56 Discharge Plan Plan Patient Disposition: HOME (Self Care) Patient condition on transfer: Stable Prescriptions/Referrals Prescriptions/Med Rec: New nitrofurantoin monohyd/m-cryst [Macrobid] 100 mg capsule 100 mg PO Q12H 7 Days Qty: 14 0RF Rx Instructions: must administer with a meal/food No Action hydrocodone-acetaminophen 5-325 mg tablet 1 tab PO Q6H MDD 4 Qty: 20 0RF Referrals: Kamilla Serrano FNP-C [Primary Care Provider] - In 1 week Problem List Clinical Impression: Influenza A, UTI (urinary tract infection) Patient/Caregiver Discharge Instructions Education Materials: The Flu (Influenza), ED CYSTITIS Female Adult Additional Instructions: Rest drink plenty of fluids take the medications as prescribed is a worsening of symptoms spite of medications follow-up with your primary care provider. Print Language: American Stand Alone Forms: Auth0 Award Info., Work/School Release, Patient Portal Info Letter PA/SALIMA Supervising Physician PA/SALIMA Supervising Physician: Enmanuel Fernández ENP [facility] Clinical Information Provided by patient Medical Records Reviewed [facility] Meds/Rx Considered, not Ordered None Labs/Rad/Tests considered, not Ordered None Chronic Illness/Social Conditions which may negatively complicate care or outcome(s)-explain: None or not applicable EKG EKG not done EKG Interpretation narrative: EKG performed at 1652 shows a ventricular rate of 98 CA interval 115 QRS of 9 6 QTc of 365 normal sinus rhythm nonspecific ST segment changes. Lab Interpretation Lab(s) interpretation(s): Influenza A positive CMP shows no significant electrolyte imbalances and mild anemia with a hemoglobin of 10.6 and a hematocrit of 32.4. No thrombocytopenia CMP shows no significant electrolyte imbalances other glucose of 135 no transaminitis or T. bili elevation. BNP of 264 Troponin is within acceptable limits Urine is turbid leukocyte esterase +26 WBCs 1+ bacteria. 4 squamous epithelial. Imaging Provider imaging interpretation(s): Chest x-ray as interpreted by me read by radiology is negative for any acute finding. Medication Administration(s) none Medication Administration History Discontinued Medications Acetaminophen (Acetaminophen 500 Mg Tablet) 1,000 mg PO X1 ONE Stop: 05/01/25 16:48 Last Admin: 05/01/25 17:02 Dose: 1,000 mg Documented By: GARRY Diagnosis Differential diagnosis: ACS SD pneumonia Most likely dx, and/or detailed dx discussion: Influenza A UTI Dispositon Disposition: Discharge Home
== END 2025-05-01 19:34 | disposition home or self-care (01) ==
PROVIDERS: Nurse Practitioner Family; Emergency Provider Emergency Medicine
DX: J10.1 Influenza due to other identified influenza virus with other respiratory manifestations (principal); N39.0 Urinary tract infection, site not specified
CPT/HCPCS: 36415; 71046; 80053; 81001; 83880; 84484; 85025; 87077; 87086; 87186; 87400; 87811; 93005; 99284; A9270

== ENCOUNTER → 2025-07-12 | Outpatient (CLI) | payer MEDICAID, SELFPAY ==
--- NOTE | 2025-07-12 14:45 | XR_ITS ---
Examination: Screening digital mammography, bilateral Computer aided detection 3-D breast Tomosynthesis, bilateral Date and time of exam: July 12, 2025, 1450 hours, compared to mammograms dating to March 24, 2019 Indication: Screening Technique: Nonmagnified MLO, CC views of the breasts to been obtained, reconstructed from 3-D Tomosynthesis images. R2 computer aided detection program utilized for evaluation of suspicious masses and/or abnormal calcifications. 3-D Tomosynthesis images obtained. Findings: Scattered areas of fibroglandular density. Stable circumscribed masses outer right breast Benign calcifications No interval suspicious masses Impression: BI-RADS category II: Benign Findings. Recommend 1 year follow-up mammogram.
== END | disposition home or self-care (01) ==
DX: Z12.31 Encounter for screening mammogram for malignant neoplasm of breast (principal); R92.323 Mammographic fibroglandular density, bilateral breasts; R92.1 Mammographic calcification found on diagnostic imaging of breast
CPT/HCPCS: 77063; 77067

== ENCOUNTER 2025-08-02 15:38 | Emergency (ER) | payer OTHER, SELFPAY ==
[2025-08-02 15:51] VITALS: BP 136/80; PULSE 97; RESP 20; TEMP 36.6; O2SAT 97
--- NOTE | 2025-08-02 15:59 | XR_ITS ---
EXAMINATION: Left wrist 2 views TECHNIQUE: AP lateral left wrist 2 views Date and time: July 03, 2025, 1611 hours INDICATIONS: Patient fell today with injury to the wrist, wrist pain. FINDINGS: Acute fracture distal radial metaphysis Carpal bones intact IMPRESSION: Acute fracture distal radial metaphysis, no significant offset
--- NOTE | 2025-08-02 16:33 | PD.EDUPEX ---
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 and landed on the left wrist patient was initially seen by the [facility] where she was treated as possible fracture of the left wrist patient was referred here for further evaluation and treatment denies any other injury denies any head neck chest or abdominal injury no loss of consciousness Limitations: no limitations Related Data Previous Rx's ?Medication ?Instructions ?Recorded hydrocodone 5 mg-acetaminophen 325 1 tab PO Q6H #20 tabs 02/28/25 mg tablet hydrocodone 5 mg-acetaminophen 325 1 tab PO Q6H PRN pain #12 tabs 08/02/25 mg tablet Allergies Allergy/AdvReac Type Severity Reaction Status Date / Time carisoprodol Allergy Severe HIVES. Verified 08/02/25 15:45 Review of Systems Review of Systems Systems Reviewed: All systems reviewed, normal except as documented Constitutional Constitutional: Reports system reviewed and no additional complaints, except as documented and Reports as per HPI Cardiovascular Cardiovascular: Reports system reviewed and no additional complaints, except as documented and Reports as per HPI Respiratory Respiratory: Reports system reviewed and no additional complaints, except as documented and Reports as per HPI Gastrointestinal Gastrointestinal: Reports system reviewed and no additional complaints, except as documented and Reports as per HPI Genitourinary Genitourinary: Reports system reviewed and no additional complaints, except as documented and Reports as per HPI Musculoskeletal Musculoskeletal: Reports system reviewed and no additional complaints, except as documented and Reports as per HPI Neurologic Neurologic: Reports system reviewed and no additional complaints, except as documented and Reports as per HPI Past Medical History Past Medical History NEUROLOGIC: Negative Neurological Disorders or Seizures CARDIAC: Negative Cardiac Disorders or Congestive Heart Failure RESPIRATORY: Negative Chronic Obstructive Pulmonary Disease (COPD) or Asthma GASTROINTESTINAL: Positive Gastrointestinal Disorders and Obesity GENITOURINARY: Positive Genitourinary Disorders and Kidney Stones; Negative Renal Disease REPRODUCTIVE: Positive Previous Pregnancies MUSCULOSKELETAL: Positive Carpal Tunnel Syndrome; Negative Musculoskeletal Disorders ENDOCRINE: Positive Hyperthyroidism; Negative Endocrine Disorders, Diabetes Mellitus Type 1 or Diabetes Mellitus Type 2 HEMATOLOGIC: Positive Anemia; Negative Blood Disorders or Sickle Cell Disease PSYCHO/SOCIAL: Positive Depression and Anxiety OTHER HISTORY: Negative Hospitalization, Autoimmune Disease, Shingles, Blood Transfusions, Anesthesia Reactions or Cancer Family History FAMILY HISTORY: Positive Family Surgery; Negative Family Psychiatric Problems, Family Respiratory Disorders, Family Cardiac Disorders, Family Gastrointestinal Problems, Family Cancer or Family Anesthesia Reaction Surgical History SURGICAL: Positive Hysterectomy and Section Social History SMOKING STATUS: Never smoker ED Exam General Limitations: Present no limitations General appearance: Present alert, in no apparent distress and other (Patient is awake alert oriented not in distress nontoxic looking well-hydrated well nourished) Head Head exam: Present atraumatic, normocephalic and normal inspection Eye Eye exam: Present normal appearance, PERRL and EOMI ENT ENT exam: Present normal exam, normal oropharynx and mucous membranes moist Neck Neck exam: Present normal inspection, full ROM and trachea midline; Absent tenderness, meningismus, lymphadenopathy or thyromegaly Chest Chest inspection: Present normal inspection and symmetric chest wall rise; Absent tenderness Respiratory Respiratory exam: Present normal lung sounds bilaterally; Absent respiratory distress, wheezes, stridor, accessory muscle use or prolonged expiratory phase Cardiovascular Cardiovascular exam: Present regular rate, normal rhythm and normal heart sounds; Absent bradycardia, tachycardia, irregular rhythm, systolic murmur or diastolic murmur Abdominal Exam Abdominal exam: Present soft and normal bowel sounds; Absent distention, tenderness, guarding, rebound, rigidity, diminished bowel sounds, hyperactive bowel sounds, hypoactive bowel sounds or organomegaly Extremities Exam Extremities exam: Present normal inspection and full ROM Expanded Upper Extremity Exam Shoulder exam: Present normal inspection and full ROM; Absent tenderness or swelling Arm exam: Present normal inspection and full ROM; Absent tenderness or swelling Elbow exam: Present normal inspection and full ROM; Absent tenderness or swelling Forearm/Wrist exam: Present tenderness, swelling and other (Moderate tenderness on palpation around the left wrist with minimal swelling no crepitation no deformity ROM limited pulses were full and equal capillary refill less than 2 seconds sensory is intact); Absent abrasion, laceration, ecchymosis, deformity, crepitus, dislocation, erythema, tenderness over anatomical snuff box or pain with axial thumb loading Hand exam: Present normal inspection and full ROM; Absent tenderness or swelling Back Exam Back exam: Present normal inspection and full ROM Neurological Exam Neurological exam: Present alert, oriented X3, CN II-XII intact and reflexes normal; Absent motor sensory deficit Psychiatric Psychiatric exam: Present normal affect and normal mood Skin Skin exam: Present warm, dry, intact and normal color Course Quality Measures none Orders Category Date Time Status Splint / Immobilizer STAT Care 08/02/25 16:26 Active XR wrist LT 2V Stat Exams 08/02/25 15:59 Completed HYDROcodone*/APAP 5/325 [[place] 5/325] Med 08/02/25 16:26 Discontinued 1 tab PO X1 ONE Vital Signs Vital signs: Vital Signs Temperature 97.8 F 08/02/25 15:51 Pulse Rate 97 08/02/25 15:51 Respiratory Rate 20 08/02/25 15:51 Blood Pressure 136/80 H 08/02/25 15:51 Pulse Oximetry (%) 97 08/02/25 15:51 Oxygen Delivery Method Room Air 08/02/25 15:51 Oxygen saturation is 97% in room air Extremity Injury MDM Narrative MDM Narrative:: This is a case of 50-year-old female with no medical history came in in the emergency room due to left wrist injury history of present illness started around 10:00 in the morning when the patient was working in the field accidentally slipped and fell and landed on the left wrist patient was initially seen by the [facility] where she was treated as possible fracture of the left wrist patient was referred here for further evaluation and treatment denies any other injury denies any head neck chest or abdominal injury no loss of consciousness physical examination patient is awake alert oriented not in distress nontoxic looking well-hydrated well-nourished moderate tenderness on the left wrist with mild swelling no crepitation no deformity pulses were full and equal capillary refill less than 2 seconds sensory intact ROM is limited due to pain the rest of the physical examination neurological exam is normal and unremarkable x-ray showed a fracture of the left distal radius and ulna not a posterior splint applied on the left wrist patient tolerated well neurovascular intact patient was advised to follow-up with PCP to be referred to orthopedic surgeon for further evaluation and treatment of wrist fracture RICE treatment will continue by the patient at home after giving [place] pain was improved and resolved patient was advised for any worsening symptoms or any emergent concern return precaution in the ER is advised no signs and symptoms of compartment syndome Patient was discharged with comfortable condition walking with stable gait. Patient verbalized no further complains explained diagnosis and answered patient question. Patient is comfortable with the proposed management plan including the need to follow up with his/her primary care physician and any specialist if applicable Discussed patient for any urgent condition or worsening sx, He/She needed to go to emergency room immediately or call 911. Patient acknowledge the responsibility to follow up as instructed and to monitor her/his symptoms. For any persistence of the symptoms for more than 3-5 days return precaution advised. Discussed the result of the test and was given printed discharge instruction Patient data External records reviewed:: [facility] previous records Clinical information provided by:: patient Social determinants that could affect healthcare access:: none Patient has the following chronic illnesses:: none How is presenting disease/condition affected by chronic disease/condition?: no chronic disease Evaluation data The following diagnostics were reviewed and interpreted by me:: radiology exam(s) Lab and/or radiology exams considered but not ordered:: reeviwed Interpretation Summary: reviewed Medications / Prescriptions Medications or Prescriptions considered but not ordered:: given Medication administrations:: Medication Administration History Discontinued Medications Hydrocodone Bitart/Acetaminophen (Hydrocodone/Apap 5/325 Tablet) 1 tab PO X1 ONE Stop: 08/02/25 16:27 given Consultations Consultation(s) initiated? (list below): No Diagnosis Upper Extremity Injury Differential Diagnosis: fracture of wrist, Colles' fracture and fracture of hand Most likely diagnosis given after review of the tests above:: distal radial ulnar fracture left wrist Admission Indicated Admission indicated?: not indicated Explain why admission is indicated or not indicated:: not indicated Admission Request Was there a request for admission?: No Admission Attestation Admission request attestation: none Disposition Plan Disposition Plan: Discharge Discharge Attestation Discharge Attestation: The patient and all family members were given an opportunity to ask questions and understood the discharge instructions. Discharge instructions specifically effects, indications for sooner follow up or return to the emergency department, and the expected course of current diagnosis. Patient condition: Stable Discharge Plan Plan Patient Disposition: HOME (Self Care) Patient condition on transfer: Stable Prescriptions/Referrals Prescriptions/Med Rec: New hydrocodone-acetaminophen 5-325 mg tablet 1 tab PO Q6H MDD max 4 tabs per day PRN (Reason: pain) Qty: 12 0RF No Action hydrocodone-acetaminophen 5-325 mg tablet 1 tab PO Q6H MDD 4 Qty: 20 0RF Problem List Clinical Impression: Closed fracture distal radius and ulna Patient/Caregiver Discharge Instructions Education Materials: Wrist Fracture, ED Forearm Fx Wo Redu, ED Splint Care, Fiberglass, ED RICE Additional Instructions: Follow-up with your primary care physician in 2 days for reevaluation and to be referred to orthopedic surgeon for further evaluation and treatment of distal radial ulnar fracture it is very important to see an orthopedic surgeon for further evaluation and treatment of your wrist fracture worsening symptoms or any emergent concerns such as numbness weakness tingling sensation return to the emergency room immediately or call 911 take your medication as directed ice pack every 2 hours for 20 minutes for 24 hours then alternate with warm compress elevate to decrease swelling keep the splint and sling in place until cleared by your primary care physician Print Language: Georgian Stand Alone Forms: Mary Beth Award Info., Patient Portal Info Letter PA/TIMBER WATCHMAN Supervising Physician PA/TIMBER WATCHMAN Supervising Physician: dr bhatia
[2025-08-02] MEDS: HYDROcodone/APAP 5/325 TABLET 1 TAB PO (18:41)
== END 2025-08-02 18:57 | disposition home or self-care (01) ==
LOC: SERX 16:48
PROVIDERS: Emergency Provider Emergency Medicine; PCP Family Medicine
DX: S52.592A Other fractures of lower end of left radius, initial encounter for closed fracture (principal); W18.09XA Striking against other object with subsequent fall, initial encounter; Y93.89 Activity, other specified; Y92.89 Other specified places as the place of occurrence of the external cause; Y99.0 Civilian activity done for income or pay
CPT/HCPCS: 29125; 73100; 99283; A9270